=== PATIENT | male | born 1985 | race Two or more races ===

== ENCOUNTER 2021-03-24 08:55 | Emergency (ER) | payer MEDICAID ==
[~2021-03-24] VITALS: Ht 162.6 cm; Wt 69.4 kg
[2021-03-24 09:32] LABS: Basophils # (auto) 0.1 10 ^3/uL (0-0.2); Eosinophils # (auto) 0.2 10 ^3/uL (0-0.8); Lymphocytes # (auto) 1.7 10 ^3/uL (0.4-5.4); Mean Corpuscular Hgb Conc. 30.9 g/dL (32.0-36.0)
[2021-03-24 09:33] LABS: Basophils % (auto) 0.8 % (0.0-2.0); Eosinophils % (auto) 1.5 % (0.0-7.0); Hematocrit 32.7 % (41.0-53.0); Hemoglobin 10.1 g/dL (13.5-17.5); Lymphocytes % (auto) 12.2 % (10.0-50.0); Mean Corpuscular Volume 67.9 fL (80.0-100.0); Monocytes # (auto) 0.7 10 ^3/uL (0-1.3); Monocytes % (auto) 4.8 % (0.0-12.0); Neutrophils # (auto) 11.6 10 ^3/uL (1.6-8.6); Neutrophils % (auto) 80.7 % (37.0-80.0); Red Blood Cells 4.82 10^6/uL (4.5-5.90); White Blood Cell 14.3 10^3/uL (4.4-10.8)
[2021-03-24 09:37] LABS: Red Cell Distribution Width 20.2 % (11.8-14.3)
[2021-03-24 10:02] LABS: Albumin 3.6 g/dL (3.4-5.0); Calcium 8.8 mg/dL (8.5-10.1); Potassium 3.8 mmol/L (3.5-5.1)
[2021-03-24 10:16] LABS: Bilirubin, Total 0.5 mg/dL (0.2-1.0)
[2021-03-24 11:00] VITALS: BP 145/79
[2021-03-24 11:29] LABS: Urine Bacteria NONE SEEN /hpf (None Seen); Urine Blood Negative /uL (Negative); Urine Mucus FEW (None Seen); Urine WBC 2 /hpf (0 - 3)
== END 2021-03-24 11:22 | disposition home or self-care (01) ==
LOC: ER 08:55
DX: D64.9 Anemia, unspecified (principal); K29.70 Gastritis, unspecified, without bleeding
CPT/HCPCS: 36415; 74176; 80053; 81001; 85025

== ENCOUNTER 2021-08-27 09:40 | Emergency (ER) | payer MEDICAID ==
[~2021-08-27] VITALS: Ht 162.6 cm; Wt 74.8 kg
[2021-08-27 10:44] LABS: Basophils # (auto) 0.1 10 ^3/uL (0-0.2); Basophils % (auto) 1.2 % (0.0-2.0); Eosinophils # (auto) 0.6 10 ^3/uL (0-0.8); Eosinophils % (auto) 6.8 % (0.0-7.0); Hematocrit 46.7 % (41.0-53.0); Hemoglobin 15.2 g/dL (13.5-17.5); Lymphocytes % (auto) 24.1 % (10.0-50.0); Mean Corpuscular Hemoglobin 27.9 pg (28.0-32.0); Mean Corpuscular Hgb Conc. 32.5 g/dL (32.0-36.0); Mean Corpuscular Volume 85.8 fL (80.0-100.0); Monocytes # (auto) 0.5 10 ^3/uL (0-1.3); Monocytes % (auto) 5.9 % (0.0-12.0); Neutrophils # (auto) 5.2 10 ^3/uL (1.6-8.6); Nucleated Red Blood Cells % 0.2 %; Red Blood Cells 5.44 10^6/uL (4.5-5.90); Red Cell Distribution Width 15.6 % (11.8-14.3); White Blood Cell 8.4 10^3/uL (4.4-10.8)
[2021-08-27 11:17] LABS: BUN/Creatinine Ratio 12.9; Bilirubin, Total 0.9 mg/dL (0.2-1.0); Calcium 9.4 mg/dL (8.5-10.1); Total Protein 8.5 g/dL (6.4-8.2)
[2021-08-27 14:00] VITALS: BP 135/96
[2021-08-27] MEDS ORDERED: CIPR-173 PO (15:24)
[2021-08-27] MEDS ORDERED: METR500T PO (15:24)
[2021-08-27] MEDS ORDERED: PERCOT PO (15:24)
== END 2021-08-27 16:08 | disposition home or self-care (01) ==
LOC: ER 09:40
DX: K57.92 Diverticulitis of intestine, part unspecified, without perforation or abscess without bleeding (principal); F41.9 Anxiety disorder, unspecified; F12.10 Cannabis abuse, uncomplicated; F32.9 Major depressive disorder, single episode, unspecified; R94.31 Abnormal electrocardiogram [ECG] [EKG]
CPT/HCPCS: 36415; 71045; 74176; 80053; 84484; 85025; 93005

== ENCOUNTER 2024-05-11 10:06 | Emergency (ER) | payer MEDICAID ==
[~2024-05-11] VITALS: Ht 165.1 cm; Wt 80.7 kg
[~2024-05-11 10:06] MED LIST: CIPR-173 PO; METR500T PO; PERCOT PO
[2024-05-11 10:43] VITALS: BP 154/88; PULSE 71; RESP 15; TEMP 97.3; O2SAT 98
[2024-05-11] MEDS: KETOROLAC TROMETH 60MG/2ML VIAL IM ONE (10:58)
[2024-05-11] MEDS ORDERED: CLIN1CAP70 PO (11:12)
[2024-05-11] MEDS ORDERED: IBUP-1456 PO (11:12)
== END 2024-05-11 11:19 | disposition home or self-care (01) ==
LOC: ER 10:06
DX: K04.7 Periapical abscess without sinus (principal); F41.9 Anxiety disorder, unspecified; F32.9 Major depressive disorder, single episode, unspecified; F15.90 Other stimulant use, unspecified, uncomplicated; Z79.899 Other long term (current) drug therapy
CPT/HCPCS: 96372; 99283; J1885

== ENCOUNTER 2024-07-02 12:30 | Emergency (ER) | payer MEDICAID ==
[~2024-07-02] VITALS: Ht 162.6 cm; Wt 79.4 kg
[~2024-07-02 12:30] MED LIST changes: +CLIN1CAP70 PO; +IBUP-1456 PO
[2024-07-02 15:40] VITALS: BP 132/96; PULSE 89; RESP 19; TEMP 99.4; O2SAT 97
--- NOTE | 2024-07-02 15:48 | ED.PDOC ---
SOB-HPI HPI Comments 39 year old male with history of emphysema and smoker presents for a nighttime panic attacks that come and go Onset: months ago Also currently complains of chest pressure to the left side Rated as moderate Denies history of AR or CVA Denies lightheadedness or dizziness Denies acid reflux, recurrent bitter/sour taste in mouth Denies shortness of breath Denies palpitations, leg swelling Denies family history of heart issues or AR Denies recent trauma to the chest, history of significant trauma to the chest nor surgeries of the chest Denies fever chills nausea vomiting diarrhea 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 PCP works in [facility] out of [employer] Chief Complaint: Anxiety Time Seen by MD: 14:49 Primary Care Provider: Neda Cortez notes: Nurses Notes, Medications, Allergies Information Source: Patient Mode of Arrival: Ambulatory Past Medical History PAST MEDICAL HISTORY: Anxiety, Depression Surgical History: Denies all surgeries Family History Family History: Reviewed,noncontributory to illness Social History Smoker: Non-Smoker Alcohol: Denies ETOH Use Drugs: Marijuana Lives In: Home All Other Systems: Reviewed and Negative (Per HPI) Physical Exam General Appearance: No Apparent Distress, Normal HEENT: Normal ENT Inspection, Pharynx Normal, TMs Normal Neck: Full Range of Motion, Non-Tender, Normal, Normal Inspection Respiratory: Chest Non-Tender, Lungs Clear, No Accessory Muscle Use, No Respiratory Distress, Normal Breath Sounds Cardiovascular: No Edema, No JVD, No Murmur, No Gallop, Normal Peripheral Pulses, Regular Rate/Rhythm Breast Exam: Deferred Gastrointestinal: No Organomegaly, Non Tender, No Pulsatile Mass, Normal Bowel Sounds, Soft Genitalia: Deferred Pelvic: Deferred Rectal: Deferred Extremities: No calf tenderness, Normal capillary refill, Normal inspection, Normal range of motion, Non-tender, No pedal edema Musculoskeletal : Apperance: Normal Neurologic: Alert, computer numerical control grinder II-XII nml as Tested, No Motor Deficits, Normal Affect, Normal Mood, No Sensory Deficits Cerebellar Function: Normal Reflexes: Normal Skin: Dry, Normal Color, Warm Lymphatic: No Adenopathy Was a procedure done? Was a procedure done?: No Differential Dx Differential Diagnosis: Anxiety, Asthma, Bronchitis, Other X-Ray, Labs, Meds, VS Vital Signs Date Time Temp Pulse Resp B/P (MAP) Pulse Ox O2 Delivery O2 Flow Rate FiO2 12/9/24 15:40 99.4 89 19 132/96 (108) 97 99.4 07/02/24 15:40 89 19 97 Room Air 07/02/24 13:30 99.4 89 19 132/96 (108) 97 Lab Test 07/02/24 16:20 Range/Units White Blood Count 10.4 4.4-10.8 10^3/uL Red Blood Count 5.34 4.5-5.90 10^6/uL Hemoglobin 13.4 L 13.5-17.5 g/dL Hematocrit 42.1 41.0-53.0 % Mean Corpuscular Volume 78.8 L 80.0-100.0 fL Mean Corpuscular Hemoglobin 25.0 L 28.0-32.0 pg Mean Corpuscular Hemoglobin Concent 31.7 L 32.0-36.0 g/dL Red Cell Distribution Width 17.3 H 11.8-14.3 % Platelet Count 403 140-450 10^3/uL Mean Platelet Volume 8.4 6.9-10.8 fL Neutrophils (%) (Auto) 67.3 37.0-80.0 % Lymphocytes (%) (Auto) 22.8 10.0-50.0 % Monocytes (%) (Auto) 6.4 0.0-12.0 % Eosinophils (%) (Auto) 2.9 0.0-7.0 % Basophils (%) (Auto) 0.6 0.0-2.0 % Neutrophils # (Auto) 7.0 1.6-8.6 10 ^3/uL Lymphocytes # (Auto) 2.4 0.4-5.4 10 ^3/uL Monocytes # (Auto) 0.7 0-1.3 10 ^3/uL Eosinophils # (Auto) 0.3 0-0.8 10 ^3/uL Basophils # (Auto) 0.1 0-0.2 10 ^3/uL Nucleated Red Blood Cells 0.1 % Sodium Level 137 136-145 mmol/L Potassium Level 4.5 3.5-5.1 mmol/L Chloride Level 104 98-107 mmol/L Carbon Dioxide Level 28 20-31 mmol/L Anion Gap 5 5-15 Blood Urea Nitrogen 14 9-23 mg/dL Creatinine 1.05 0.700-1.30 mg/dL Glomerular Filtration Rate Calc 92 >90 mL/min BUN/Creatinine Ratio 13.3 10.0-20.0 Serum Glucose 93 74-106 mg/dL Calcium Level 10.4 8.7-10.4 mg/dL Troponin I High Sensitivity < 3 L </=54 ng/L X-Ray, Labs, Meds, VS Comment History and physical exam consistent no red flags. Labs unremarkable. Chest x-ray and troponin normal Heart score 0. Not likely ACS. On reevaluation patient stable vital signs stable Discussed atypical chest pain and factors that may induce symptoms Discharge stress reduction, sleep hygiene, importance of exercise and healthy lifestyle ER precautions provided chest pain continues or worsens Return for any chest discomfort, tightness, pain that radiates to the arm/neck/jaw, fatigue, diaphoresis, dizziness, and/or shortness of breath Advised patient not to drive, call 911 Time of 1ST Reevaluation: 17:00 Reevaluation 1ST: Improved Patient Education/Counseling: Diagnosis, Treatment Family Education/Counseling: Diagnosis, Treatment Departure 1 Departure Time of Disposition: 17:21 Impression: Primary Impression: Chest pain Qualified Codes: R07.9 - Chest pain, unspecified Additional Impression: Awakens from sleep at night Disposition: HOME / SELF CARE / HOMELESS Condition: Stable e-Prescriptions Trazodone HCl (Trazodone Hydrochloride) 50 Mg Tab 50 MG PO QHSP PRN for 30 Days, #30 TAB 0 Refills Prov: YASMINE CALDERON NP 07/02/24 Discharged With: Self Critical Care Note Critical Care Time?: No Stability Stability form required: No Heart Score Heart Score: Heart Score Response (Comments) Value History N/A 0 EKG N/A 0 Age N/A 0 Risk Factors N/A 0 Troponin N/A 0 Total 0 YASMINE CALDERON NP Jul 02, 2024 15:48
--- NOTE | 2024-07-02 16:08 | DVH ---
CHEST RADIOGRAPH Indication: r/o serious pathology Technique: Frontal and lateral view of the chest was obtained Comparison: None FINDINGS: Lines and Tubes: None Lungs: Clear Pleura: No effusion. No pneumothorax. Cardiomediastinal contours: Unremarkable Bones: Unremarkable IMPRESSION: No evidence of acute disease.
[2024-07-02 16:37] LABS: Basophils # (auto) 0.1 10 ^3/uL (0-0.2); Basophils % (auto) 0.6 % (0.0-2.0); Eosinophils # (auto) 0.3 10 ^3/uL (0-0.8); Eosinophils % (auto) 2.9 % (0.0-7.0); Hematocrit 42.1 % (41.0-53.0); Hemoglobin 13.4 g/dL (13.5-17.5); Lymphocytes # (auto) 2.4 10 ^3/uL (0.4-5.4); Lymphocytes % (auto) 22.8 % (10.0-50.0); Mean Corpuscular Hgb Conc. 31.7 g/dL (32.0-36.0); Mean Corpuscular Volume 78.8 fL (80.0-100.0); Monocytes # (auto) 0.7 10 ^3/uL (0-1.3); Monocytes % (auto) 6.4 % (0.0-12.0); Neutrophils % (auto) 67.3 % (37.0-80.0); Nucleated Red Blood Cells % 0.1 %; Platelet Count (auto) 403 10^3/uL (140-450); Red Blood Cells 5.34 10^6/uL (4.5-5.90); Red Cell Distribution Width 17.3 % (11.8-14.3); White Blood Cell 10.4 10^3/uL (4.4-10.8)
[2024-07-02 16:49] LABS: Chloride 104 mmol/L (98-107); Potassium 4.5 mmol/L (3.5-5.1); Sodium 137 mmol/L (136-145)
[2024-07-02 16:50] LABS: Anion Gap 5 (5-15); Calcium 10.4 mg/dL (8.7-10.4); Carbon Dioxide 28 mmol/L (20-31)
[2024-07-02 16:55] LABS: BUN/Creatinine Ratio 13.3 (10.0-20.0); Blood Urea Nitrogen 14 mg/dL (9-23); Glucose 93 mg/dL (74-106)
[2024-07-02] MEDS ORDERED: TRAZ-181 PO (17:22)
--- NOTE | 2024-07-03 09:46 | ECG ---
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
== END 2024-07-02 17:31 | disposition home or self-care (01) ==
LOC: ER 12:30
DX: F41.0 Panic disorder [episodic paroxysmal anxiety] (principal); R07.89 Other chest pain
CPT/HCPCS: 36415; 71046; 80048; 84484; 85025; 93005